=== PATIENT | male | born 1995 | race Two or more races ===

== ENCOUNTER 2023-12-21 05:07 | Emergency (ER) | payer OTHER ==
[~2023-12-21] VITALS: Ht 170.2 cm; Wt 68.2 kg
[2023-12-21 05:56] LABS: BASOPHILS # (AUTO) 0.4 K/UL (0.0-0.2); DIFFERENTIAL COMMENT 0; EOSINOPHILS # (AUTO) 0.3 K/uL (0.0-0.7); EOSINOPHILS % (AUTO) 2.6 % (0.0-7.0); HEMATOCRIT 38.1 % (36.7-47.1); HEMOGLOBIN 12.5 g/dL (12.5-16.3); LYMPHOCYTES # (AUTO) 2.5 K/uL (0.8-4.8); LYMPHOCYTES % (AUTO) 19.7 % (20.5-51.5); MEAN CORPUSCULAR HEMOGLOBIN 30.8 uug (23.8-33.4); MEAN CORPUSCULAR HGB CONC 33 g/dL (32.5-36.3); MEAN CORPUSCULAR VOLUME 93.5 fL (73.0-96.2); NEUTROPHILS # (AUTO) 8.4 K/uL (1.8-8.9); NEUTROPHILS % (AUTO) 66.7 % (38.5-71.5); PLATELET COUNT (AUTO) 339 K/uL (152-348); RED BLOOD CELL COUNT(AUTO) 4.07 MIL/uL (4.06-5.63); RED CELL DISTRIBUTION WIDTH 13.1 % (12.1-16.2); WHITE BLOOD COUNT (AUTO) 12.6 K/uL (3.6-10.2)
[2023-12-21 06:06] LABS: CALCIUM 8.8 mg/dL (8.5-10.1); CARBON DIOXIDE 27 mmol/L (21-32); CHLORIDE 103 mmol/L (98-107); CREATININE 0.9 mg/dL (0.6-1.3); GLUCOSE 88 mg/dL (74-106); POTASSIUM 3.2 mmol/L (3.5-5.1); SODIUM SERUM 140 mmol/L (136-145); UREA NITROGEN, BLOOD 7 mg/dL (7-18)
[2023-12-21 06:15] LABS: ALANINE AMINOTRANSFERASE 68 U/L (16-63); ALBUMIN 3.2 g/dL (3.4-5.0); ALKALINE PHOSPHATASE 77 U/L (50-136); ASPARTATE AMINOTRANSFERASE 45 U/L (15-37); BILIRUBIN,DIRECT 0.2 mg/dL (0.0-0.2); BILIRUBIN,TOTAL 0.5 mg/dL (0.2-1.0); TOTAL PROTEIN, SERUM 6.8 g/dL (6.4-8.2)
[2023-12-21 06:19] LABS: *BLOOD, URINE NEGATIVE (NEGATIVE); *CLARITY,URINE CLEAR (CLEAR); *COLOR,URINE YELLOW (YELLOW); *KETONES,URINE NEGATIVE (NEGATIVE); *PROTEIN,URINE 2+ (NEGATIVE); ACETAMINOPHEN < 10.0 ug/mL (10-30); LEUKOCYTE ESTERASE ,URINE NEGATIVE (NEGATIVE); NITRITE, URINE NEGATIVE (NEGATIVE); PH,URINE 5.5 (5.0-8.0); UGLUCOSE NEGATIVE (NEGATIVE)
[2023-12-21 06:21] LABS: *BILIRUBIN,URIN 1+ (NEGATIVE)
[2023-12-21 06:27] LABS: BACTERIA,URINE FEW /HPF (NONE SEEN); RBC,URINE 0-3 /HPF (0-3); SQUAMOUS EPITHELIAL CELL,UR MODERATE /HPF (NONE SEEN); WBC,URINE NONE SEEN /HPF (0-3)
[2023-12-21 06:28] LABS: MUCUS,URINE MODERATE /LPF (0-FEW)
[2023-12-21] MEDS: POTASSIUM CHLORIDE 20 MEQ TAB.PRT.SR PO ONE (07:15)
[2023-12-21] MEDS ORDERED: POTASSIUM CHLORIDE 100 ML ONE (08:21)
[2023-12-21] MEDS: IV 1/2 NS + KCL 20 MEQ BAG 1,000 ML IV ONE (08:25)
[2023-12-21] MEDS: [UNRECOGNIZED DRUG - OTHER] IV ONE (08:48)
[2023-12-21] MEDS: KCL IV ONE (08:48)
[2023-12-21 10:13] LABS: ETHANOL < 3 MG/DL (0-10)
[2023-12-21 10:22] LABS: AMMONIA 39 umol/L (11-32)
[2023-12-21 10:26] LABS: *OPIATE, URINE NEGATIVE (NEGATIVE)
[2023-12-21 10:27] LABS: *AMPHETAMINE, URINE POSITIVE (NEGATIVE); *BARBITURATE, URINE NEGATIVE (NEGATIVE); *BENZODIAZEPINE, URINE NEGATIVE (NEGATIVE); *CANNABINOID, URINE POSITIVE (NEGATIVE); *COCCAINE, URINE NEGATIVE (NEGATIVE); *PHENCYCLIDINE SCREEN,URINE NEGATIVE (NEGATIVE); FENTANYL, URINE POSITIVE (NEGATIVE)
[2023-12-21 11:45] VITALS: O2SAT 99
[2023-12-21 15:00] LABS: BAND % (MANUAL) 10 % (0-10); EOSINOPHILS % (MANUAL) 1 % (0-8); LYMPHOCYTES % (MANUAL) 21 % (20-40); MONOCYTES % (MANUAL) 9 % (2-10); NEUTROPHILS % (MANUAL) 59 % (42-75)
[2023-12-21 15:01] LABS: PLATELET ESTIMATE ADEQUATE
== END 2023-12-21 12:28 ==
LOC: ER 05:12
DX: F19.10 Other psychoactive substance abuse, uncomplicated (principal); R51.9 Headache, unspecified; F91.9 Conduct disorder, unspecified; R06.02 Shortness of breath
CPT/HCPCS: 80076; 80048; 81001; 82140; 85007; 85025; 85730; 84484; 36415; 93005; 71045; 70450 ×2; 74176; 99285; 96360; 96361; 80299; 80320; 80307; J3480; 70030-TC; A4606; A4663; G0480